=== PATIENT | female | born 1995 | race Caucasian/White ===

== ENCOUNTER 2017-09-27 14:14 | Day surgery (SDC) | payer BC ==
[~2017-09-27] VITALS: Ht 160 cm; Wt 64.0 kg
[~2017-09-27 14:14] MED LIST: DEPO-TESTOS100 MG/ML IM; REGLAN 10MG10 MG/TAB PO; SYNTHROID0.112 MG/T PO; WELLBUTRIN XL300 M1 PO; ZANTAC 150MG T150 MG PO; ZOLOFT 100MG100 MG PO
[2017-09-27] MEDS ORDERED: DEXILANT30 MG PO (14:31)
[2017-09-27 14:37] VITALS: BP 112/66; PULSE 66; TEMP 98.4
[2017-09-27 17:10] VITALS: BP 113/70; PULSE 67; TEMP 97.9
[2017-09-27 17:25] VITALS: BP 105/68; PULSE 58
[2017-09-27 17:40] VITALS: BP 110/66; PULSE 60
[2017-09-27 20:15] VITALS: BP 116/65; PULSE 57
== END 2017-09-27 18:10 | disposition home or self-care (01) ==
LOC: SDCO 14:14
DX: R11.2 Nausea with vomiting, unspecified (principal); F41.9 Anxiety disorder, unspecified; F32.9 Major depressive disorder, single episode, unspecified; E03.9 Hypothyroidism, unspecified; R68.81 Early satiety; R94.5 Abnormal results of liver function studies; Z87.891 Personal history of nicotine dependence
CPT/HCPCS: OP; J2250; J3010; J7030

== ENCOUNTER 2018-02-07 12:24 | Emergency (ER) | payer BC ==
[~2018-02-07] VITALS: Ht 160 cm; Wt 63.6 kg
[~2018-02-07 12:24] MED LIST changes: +DEXILANT30 MG PO
[2018-02-07 12:35] VITALS: TEMP 98.2
[2018-02-07 13:21] LABS: ALBUMIN 4.9 gm/dL (3.5-5.0); BILIRUBIN,TOTAL 1.3 mg/dL (0.0-1.0); CALCIUM 10.1 mg/dL (8.4-10.2); CREATININE, serum 0.9 mg/dL (0.52-1.25); POTASSIUM 3.5 mmol/L (3.4-5.0); TOTAL PROTEIN 8.4 gm/dL (6.4-8.2)
[2018-02-07 13:21] LABS: BASO # 0.1 (0.0-0.2); BASO % 0.6 % (0.0-2.0); EOS % 0.1 % (0-4.0); GRAN % 84.9 % (42.2-75.2); HEMATOCRIT 44.1 % (37.0-47.0); HEMOGLOBIN 15.2 g/dl (12.5-16.0); LYMPH # 1.5 (1.2-3.4); LYMPH % 10.4 % (20.0-51.0); MEAN CELL VOLUME 87 fl (80.0-100.0); MEAN CORPUSCULAR HEMOGLOBIN 30 pg (27.0-31.0); MEAN CORPUSCULAR HGB CONC 35 g/dl (33.0-37.0); MEAN PLATELET VOLUME 9.9 fl (7.4-10.4); MONO # 0.5 (0.1-0.6); MONO % 3.3 % (1.7-9.3); PLATELET COUNT 329 K/mm3 (130-400); RED BLOOD COUNT 5.09 M/mm3 (4.10-5.30); REDCELL DISTRIBUTION WIDTH-CV 12.3 % (11.5-14.5)
[2018-02-07 13:26] LABS: COLLECTION METHOD CLEAN CATCH
[2018-02-07 13:34] LABS: MUCOUS Present /lpf; PH 5 (5-8); SQUAMOUS EPITHELIAL 0-2 /hpf; URINE APPEARANCE Hazy; URINE BACTERIA None Seen /hpf; URINE BILIRUBIN Negative (NEGATIVE); URINE BLOOD 1+ (NEGATIVE); URINE COLOR Yellow; URINE GLUCOSE Negative (NEGATIVE); URINE KETONE Negative (NEGATIVE); URINE LEUKOCYTE ESTERASE 1+ (NEGATIVE); URINE NITRATE Negative (NEGATIVE); URINE PROTEIN(semi-quant) 1+ (NEGATIVE); URINE UROBILINOGEN Negative (NEGATIVE)
[2018-02-07] MEDS ORDERED: ZOFRAN 4MG T4 MG/TAB PO (15:01)
[2018-02-07 15:33] VITALS: BP 113/61; PULSE 52
== END 2018-02-07 15:39 | disposition home or self-care (01) ==
LOC: COL.ER 12:24
PROVIDERS: Nurse Practitioner
DX: K52.9 Noninfective gastroenteritis and colitis, unspecified (principal); E03.9 Hypothyroidism, unspecified; F17.210 Nicotine dependence, cigarettes, uncomplicated; Z87.442 Personal history of urinary calculi
CPT/HCPCS: J1885; J2405; J3010; J7030; Q9967